=== PATIENT | male | born 1985 | race American Indian/Alaskan Native ===

== ENCOUNTER 2017-02-14 16:22 | Emergency (ER) | payer SELFPAY ==
[2017-02-14 17:12] VITALS: BP 144/84
[2017-02-14 17:46] LABS: Basophils % (Auto) 0.3 % (0.0-1.8); Eosinophils % (Auto) 0.1 % (0.0-4.3); Hematocrit 43.4 % (35.5-45.6); Hemoglobin 14.8 gm/dl (11.8-15.2); Mean Corpuscular HGB Conc 34 % (32-34); Mean Corpuscular Hemoglobin 33 pg (28-32); Mean Corpuscular Volume 98 fl (84-94); Platelet Count 239 K/mm3 (140-440); Red Blood Count 4.42 M/mm3 (3.65-5.03); Red Cell Distribution Width 12.5 % (13.2-15.2); White Blood Count 6.5 K/mm3 (4.5-11.0)
[2017-02-14 18:23] LABS: Anion Gap 17 mmol/L; BUN/Creatinine Ratio 9; Blood Urea Nitrogen 7 mg/dL (9-20); Carbon Dioxide 27 mmol/L (22-30); Chloride 97.6 mmol/L (98-107); Glucose 233 mg/dL (75-100); Potassium 4.7 mmol/L (3.6-5.0); Sodium 137 mmol/L (137-145)
[2017-02-14 18:26] LABS: Bilirubin,Urine NEG (Negative); Blood,Urine NEG (Negative); Ketones,Urine NEG (Negative); Leukocyte Esterase,Urine NEG (Negative); Nitrite,Urine NEG (Negative); Protein,Urine <15 mg/dL mg/dL (Negative); RBC,Urine < 1.0 /HPF (0.0-6.0); Urobilinogen,Urine < 2.0 mg/dL (<2.0); WBC,Urine < 1.0 /HPF (0.0-6.0)
== END 2017-02-14 18:25 | disposition left against medical advice (07) ==
LOC: ED 16:22
DX: E16.2 Hypoglycemia, unspecified (principal); Z53.21 Procedure and treatment not carried out due to patient leaving prior to being seen by health care provider
CPT/HCPCS: 36415; 80048; 81001; 82962; 85025

== ENCOUNTER 2021-02-18 01:42 | Emergency (ER) | payer SELFPAY ==
[2021-02-18 02:10] VITALS: BP 159/93
[2021-02-18] MEDS ORDERED: dexAMETHasone 20 MG/5 ML VIAL IM ONE (02:29)
[2021-02-18] MEDS ORDERED: diphenhydrAMINE 25 MG CAP PO ONE (02:29)
[2021-02-18] MEDS ORDERED: FAMOTIDINE 20 MG TAB PO ONE (02:29)
--- NOTE | 2021-02-18 03:38 | XRay Report ---
CHEST 2 VIEWS INDICATION: sob. COMPARISON: 12/18/2012. FINDINGS: Support devices: None. Heart: Within normal limits. Lungs/Pleura: No acute air space or interstitial disease. No significant pleural effusion. IMPRESSION: No acute findings. Signer Name: Abilio Sandhu MD Signed: 02/18/2021 3:33 AM Workstation Name: [id number]
--- NOTE | 2021-02-18 04:46 | Emergency Department Report ---
ED General Adult HPI - General Chief complaint: Upper Respiratory Infection Stated complaint: EXTREME COUGH Time Seen by Provider: 02/18/21 02:31 Source: patient Mode of arrival: Ambulatory Limitations: No Limitations - History of Present Illness Initial comments: Patient 35-year-old male who presents for cough states allergic reaction to dust in his hotel room. Patient denies history of asthma or bronchitis. There is no wheezing or stridor. Patient states itching burning skin. Is been no nausea no vomiting no shortness of breath no chest pain no fever chills. Symptoms are rated mild at this time. There are no relieving factors other than avoidance of stimuli. . - Related Data Home Medications Medication Instructions Recorded Confirmed Last Taken Insulin NPH/Regular [NovoLIN 70/30] 30 units SQ QAM 12/17/12 01/17/16 01/17/16 Insulin NPH/Regular [Novolin 70/30] 20 unit SQ QHS 12/18/12 01/17/16 01/16/16 Gabapentin [Neurontin] 800 mg PO DAILY 01/17/16 01/17/16 01/17/16 Vitamin B-12 1 tab PO DAILY 01/17/16 01/17/16 01/17/16 buPROPion [Wellbutrin] 300 mg PO DAILY 01/17/16 01/17/16 01/17/16 Previous Rx's Medication Instructions Recorded Last Taken Type Gentamicin 0.3% Ophth Soln 2 drops OS Q4H #1 bottle 07/21/15 Unknown Rx Ketorolac Tromethamine [Acular 1 drop OS QID PRN #5 ml 07/21/15 Unknown Rx 0.5% Opth Soln] Famotidine [Pepcid] 20 mg PO BID 5 Days #10 tablet 02/18/21 Unknown Rx dexAMETHasone [Decadron] 4 mg PO Q12H 5 Days #10 tablet 02/18/21 Unknown Rx diphenhydrAMINE [Benadryl CAP] 25 mg PO Q8HR PRN 5 Days #15 02/18/21 Unknown Rx capsule Allergies Allergy/AdvReac Type Severity Reaction Status Date / Time No Known Allergies Allergy Verified 07/21/15 16:14 ED Review of Systems ROS: Stated complaint: EXTREME COUGH Other details as noted in HPI Constitutional: denies: chills, fever Eyes: denies: eye pain, eye discharge, vision change ENT: congestion. denies: ear pain, throat pain Respiratory: cough. denies: shortness of breath, wheezing Cardiovascular: denies: chest pain, palpitations Endocrine: no symptoms reported Gastrointestinal: denies: abdominal pain, nausea, diarrhea Genitourinary: denies: urgency, dysuria Musculoskeletal: denies: back pain, joint swelling, arthralgia Skin: pruritus. denies: rash, lesions Neurological: denies: headache, weakness, paresthesias Psychiatric: denies: anxiety, depression Hematological/Lymphatic: denies: easy bleeding, easy bruising ED Past Medical Hx - Past Medical History Previous Medical History?: Yes Hx Hypertension: Yes Hx Diabetes: Yes Hx Psychiatric Treatment: Yes Hx Asthma: Yes - Surgical History Past Surgical History?: No - Social History Smoking Status: Unknown if ever smoked Substance Use Type: None - Medications Home Medications: Home Medications Medication Instructions Recorded Confirmed Last Taken Type Insulin NPH/Regular [NovoLIN 70/30] 30 units SQ QAM 12/17/12 01/17/16 01/17/16 History Insulin NPH/Regular [Novolin 70/30] 20 unit SQ QHS 12/18/12 01/17/16 01/16/16 History Gentamicin 0.3% Ophth Soln 2 drops OS Q4H #1 bottle 07/21/15 01/17/16 Unknown Rx Ketorolac Tromethamine [Acular 1 drop OS QID PRN #5 ml 07/21/15 01/17/16 Unknown Rx 0.5% Opth Soln] Gabapentin [Neurontin] 800 mg PO DAILY 01/17/16 01/17/16 01/17/16 History Vitamin B-12 1 tab PO DAILY 01/17/16 01/17/16 01/17/16 History buPROPion [Wellbutrin] 300 mg PO DAILY 01/17/16 01/17/16 01/17/16 History Famotidine [Pepcid] 20 mg PO BID 5 Days #10 tablet 02/18/21 Unknown Rx dexAMETHasone [Decadron] 4 mg PO Q12H 5 Days #10 tablet 02/18/21 Unknown Rx diphenhydrAMINE [Benadryl CAP] 25 mg PO Q8HR PRN 5 Days #15 02/18/21 Unknown Rx capsule ED Physical Exam - General Limitations: No Limitations General appearance: alert, in no apparent distress - Head Head exam: Present: atraumatic, normocephalic - Eye Eye exam: Present: EOMI Pupils: Present: normal accommodation - ENT ENT exam: Present: mucous membranes moist - Neck Neck exam: Present: normal inspection - Respiratory Respiratory exam: Present: normal lung sounds bilaterally. Absent: respiratory distress, wheezes, rales, rhonchi, stridor - Cardiovascular Cardiovascular Exam: Present: regular rate, normal rhythm, normal heart sounds. Absent: systolic murmur, diastolic murmur, rubs, gallop - GI/Abdominal GI/Abdominal exam: Present: soft, normal bowel sounds. Absent: distended, tenderness, guarding, rebound, rigid, bruit, hernia - Rectal Rectal exam: Present: deferred - Extremities Exam Extremities exam: Present: normal inspection, full ROM, normal capillary refill - Back Exam Back exam: Present: normal inspection, full ROM. Absent: CVA tenderness (R), CVA tenderness (L) - Neurological Exam Neurological exam: Present: alert, oriented X3, CN II-XII intact, normal gait, reflexes normal. Absent: motor sensory deficit - Expanded Neurological Exam Expanded Patient oriented to: Present: person, place, time Speech: Present: fluid speech Motor strength exam: RUE: 5, LUE: 5, RLE: 5, LLE: 5 Best Eye Response ([place]): (4) open spontaneously Best Motor Response ([place]): (6) obeys commands Best Verbal Response ([place]): (5) oriented [place] Total: 15 - Psychiatric Psychiatric exam: Present: normal affect, normal mood - Skin Skin exam: Present: warm, dry, intact, normal color. Absent: rash ED Course Vital Signs 02/18/21 02:09 Temperature 98.1 F Pulse Rate 109 H Respiratory 18 Rate Blood Pressure 159/93 [Right] O2 Sat by Pulse 97 Oximetry ED Medical Decision Making - Radiology Data Radiology results: report reviewed, image reviewed CHEST 2 VIEWS INDICATION: sob. COMPARISON: 12/18/2012. FINDINGS: Support devices: None. Heart: Within normal limits. Lungs/Pleura: No acute air space or interstitial disease. No significant pleural effusion. IMPRESSION: No acute findings. Signer Name: Abilio Sandhu MD Signed: 02/18/2021 3:33 AM Workstation Name: [id number] Transcribed By: JESSICA Dictated By: Abilio Sandhu MD Electronically Authenticated By: Abilio Sandhu MD Signed Date/Time: 02/18/21 0333 - Medical Decision Making Symptoms are resolved with medications given in ED. Heart rate now 87 BP 121/63, O2 sat is 99% on room air. Respirations are 18. Plan DC to home with prescriptions, patient will follow-up with primary care in 2 to 3 days. Patient will return to ED should symptoms worsen or return. Patient verbalizes agreement and understanding with discharge plan. Patient will be DC'd home in stable condition at this time., Critical care attestation.: If time is entered above; I have spent that time in minutes in the direct care of this critically ill patient, excluding procedure time. ED Disposition Clinical Impression: Allergic reaction Qualifiers: Encounter type: initial encounter Qualified Code(s): T78.40XA - Allergy, unspecified, initial encounter Disposition: HOME / SELF CARE / HOMELESS Is pt being admited?: No Does the pt Need Aspirin: No Condition: Stable Instructions: Allergies, Adult, [id number] Additional Instructions: Take medications as prescribed, follow-up with your doctor as needed. Return to emergency department should symptoms worsen. Prescriptions: diphenhydrAMINE [Benadryl CAP] 25 mg PO Q8HR PRN 5 Days #15 capsule PRN Reason: allergies dexAMETHasone [Decadron] 4 mg PO Q12H 5 Days #10 tablet Famotidine [Pepcid] 20 mg PO BID 5 Days #10 tablet Referrals: MORRIS KATE MD [Staff Physician] - 3-5 Days Forms: Work/School Release Form(ED) Time of Disposition: 04:50
== END 2021-02-18 05:13 | disposition home or self-care (01) ==
LOC: ED 01:42
DX: T78.40XA Allergy, unspecified, initial encounter (principal); I10 Essential (primary) hypertension; E11.9 Type 2 diabetes mellitus without complications; J45.909 Unspecified asthma, uncomplicated; Z79.4 Long term (current) use of insulin; X58.XXXA Exposure to other specified factors, initial encounter
CPT/HCPCS: 71046; 96372; 99283; J1100

== ENCOUNTER 2021-02-24 20:07 | Emergency (ER) | payer SELFPAY ==
[2021-02-24] MEDS ORDERED: LORazepam 2 MG/ML VIAL IM PRN (20:30)
[2021-02-24] MEDS ORDERED: HALOPERIDOL LACTATE 5 MG/1 ML INJ IM PRN (20:30)
[2021-02-24] MEDS ORDERED: diphenhydrAMINE 50 MG/ML VIAL IM PRN (20:30)
[2021-02-24 20:49] LABS: Red Cell Distribution Width 12.6 % (13.2-15.2)
[2021-02-24 21:04] LABS: Hematocrit 44.7 % (35.5-45.6); Lymphocytes # (Auto) 0.8 K/mm3 (1.2-5.4); Lymphocytes % (Auto) 7.5 % (13.4-35.0); Mean Corpuscular HGB Conc 34 % (32-34); Mean Corpuscular Volume 99 fl (84-94); Platelet Count 259 K/mm3 (140-440); Red Blood Count 4.52 M/mm3 (3.65-5.03)
--- NOTE | 2021-02-24 21:09 | Emergency Department Report ---
HPI - General Chief Complaint: Psych Time Seen by Provider: 02/24/21 20:29 - HPI HPI: Room 12 The patient is a 35-year-old male present with a chief complaint of homicidal ideation. The patient admits to becoming belligerent earlier today with neighbors around as he felt he was being accused of being a pedophile. The patient was brought in on a 1013 documenting that he stated he would kill himself. The patient reportedly threatened to kill himself with a knife. The patient denies this states he started yelling at his neighbors telling them "I hurt people/men not children." The patient states he used a hammer to bang on his mailbox and stated he wanted to hurt "somebody." The patient states "I like to beat men to ." Patient denies suicidal ideation. Patient has a history of bipolar disorder and states has been at least 2 months since he has had any of his psychiatric medication ED Past Medical Hx - Past Medical History Hx Hypertension: Yes Hx Diabetes: Yes Hx Psychiatric Treatment: Yes (BIPOLAR) Hx Asthma: Yes - Family History Family history: no significant - Social History Smoking Status: Current Every Day Smoker (1/4 pack/day) Substance Use Type: None (Denies illicit drug) - Medications Home Medications: Home Medications Medication Instructions Recorded Confirmed Last Taken Type Insulin NPH/Regular [NovoLIN 70/30] 30 units SQ QAM 12/17/12 01/17/16 01/17/16 History Insulin NPH/Regular [Novolin 70/30] 20 unit SQ QHS 12/18/12 01/17/16 01/16/16 History Gentamicin 0.3% Ophth Soln 2 drops OS Q4H #1 bottle 07/21/15 01/17/16 Unknown Rx Ketorolac Tromethamine [Acular 1 drop OS QID PRN #5 ml 07/21/15 01/17/16 Unknown Rx 0.5% Opth Soln] Gabapentin [Neurontin] 800 mg PO DAILY 01/17/16 01/17/16 01/17/16 History Vitamin B-12 1 tab PO DAILY 01/17/16 01/17/16 01/17/16 History buPROPion [Wellbutrin] 300 mg PO DAILY 01/17/16 01/17/16 01/17/16 History Famotidine [Pepcid] 20 mg PO BID 5 Days #10 tablet 02/18/21 Unknown Rx dexAMETHasone [Decadron] 4 mg PO Q12H 5 Days #10 tablet 02/18/21 Unknown Rx diphenhydrAMINE [Benadryl CAP] 25 mg PO Q8HR PRN 5 Days #15 02/18/21 Unknown Rx capsule ED Review of Systems ROS: Stated complaint: SUICIDAL Other details as noted in HPI Constitutional: no symptoms reported Eyes: denies: eye pain ENT: denies: throat pain Respiratory: no symptoms reported Cardiovascular: denies: chest pain Endocrine: no symptoms reported Gastrointestinal: denies: abdominal pain Genitourinary: denies: dysuria Musculoskeletal: denies: back pain Psychiatric: homicidal thoughts, suicidal thoughts Physical Exam - Physical Exam Vital Signs: Vital Signs 02/24/21 20:15 Temperature 98.3 F Pulse Rate 104 H Respiratory 19 Rate Blood Pressure 131/77 [Left] O2 Sat by Pulse 99 Oximetry Physical Exam: GENERAL: The patient is well-developed well-nourished male lying in chair not appearing to be in acute HEENT: Normocephalic. Atraumatic. Extraocular motions are intact. Patient has moist mucous membranes. NECK: Supple. Trachea midline CHEST/LUNGS: Clear to auscultation. There is no respiratory distress noted. HEART/CARDIOVASCULAR: Regular. There is no tachycardia. There is no gallop rub or murmur. ABDOMEN: Abdomen is soft, nontender. Patient has normal bowel sounds. There is no abdominal distention. SKIN: There is no rash. There is no edema. There is no diaphoresis. NEURO: The patient is awake, alert, and oriented. The patient is cooperative. The patient has no focal neurologic deficits. The patient has normal speech. GCS 15 MUSCULOSKELETAL: There is no evidence of acute injury. ED Course Vital Signs 02/24/21 20:15 Temperature 98.3 F Pulse Rate 104 H Respiratory 19 Rate Blood Pressure 131/77 [Left] O2 Sat by Pulse 99 Oximetry ED Medical Decision Making - Lab Data Result diagrams: 02/24/21 20:36 02/24/21 20:36 Laboratory Tests 02/24/21 02/24/21 02/24/21 20:36 20:36 20:36 WBC 10.6 RBC 4.52 Hgb 15.0 Hct 44.7 MCV 99 H MCH 33 H MCHC 34 RDW 12.6 L Plt Count 259 Lymph % (Auto) 7.5 L Lymph # (Auto) 0.8 L Add Manual Diff Complete Total Counted 100 Seg Neutrophils % Supervisor Wound Seg Neuts % (Manual) 89.0 H Lymphocytes % (Manual) 8.0 L Monocytes % (Manual) 3.0 Nucleated RBC % Not Reportable Seg Neutrophils # 9.5 H Seg Neutrophils # Man 9.4 H Band Neutrophils # 0.0 Lymphocytes # (Manual) 0.8 L Abs React Lymphs (Man) 0.0 Monocytes # (Manual) 0.3 Eosinophils # (Manual) 0.0 Basophils # (Manual) 0.0 Metamyelocytes # 0.0 Myelocytes # 0.0 Promyelocytes # 0.0 Blast Cells # 0.0 WBC Morphology Not Reportable Hypersegmented Neuts Not Reportable Hyposegmented Neuts Not Reportable Hypogranular Neuts Not Reportable Smudge Cells Not Reportable Toxic Granulation Not Reportable Toxic Vacuolation Not Reportable Dohle Bodies Not Reportable Pelger-Huet Anomaly Not Reportable Romelia Rods Not Reportable Platelet Estimate Not Reportable Clumped Platelets Not Reportable Plt Clumps, EDTA Not Reportable Large Platelets Not Reportable Giant Platelets Not Reportable Platelet Satelliting Not Reportable Plt Morphology Comment Not Reportable RBC Morphology Normal Dimorphic RBCs Not Reportable Polychromasia Not Reportable Hypochromasia Not Reportable Poikilocytosis Not Reportable Anisocytosis Not Reportable Microcytosis Not Reportable Macrocytosis Not Reportable Spherocytes Not Reportable Pappenheimer Bodies Not Reportable Sickle Cells Not Reportable Target Cells Not Reportable Tear Drop Cells Not Reportable Ovalocytes Not Reportable Helmet Cells Not Reportable [place] Bodies Not Reportable [place] Not Reportable Nitin Cells Not Reportable Bite Cells Not Reportable Crenated Cell Not Reportable Elliptocytes Not Reportable Acanthocytes ([place]) Not Reportable Rouleaux Not Reportable Hemoglobin C Crystals Not Reportable Schistocytes Not Reportable Malaria parasites Not Reportable [place] Bodies Not Reportable Hem Pathologist Commnt No Sodium 139 Potassium 4.6 Chloride 103.0 Carbon Dioxide 21 L Anion Gap 20 BUN 13 Creatinine 1.0 Estimated GFR > 60 BUN/Creatinine Ratio 13 Glucose 95 Calcium 9.3 Total Bilirubin 0.50 AST 28 ALT 22 Alkaline Phosphatase 110 Total Protein 7.4 Albumin 4.3 Albumin/Globulin Ratio 1.4 Urine Color Urine Turbidity Urine pH Ur Specific [place] Urine Protein Urine Glucose (UA) Urine Ketones Urine Blood Urine Nitrite Urine Bilirubin Urine Urobilinogen Ur Leukocyte Esterase Urine WBC (Auto) Urine RBC (Auto) U Epithel Cells (Auto) Urine Bacteria (Auto) Hyaline Casts Urine Mucus Salicylates < 0.3 L Urine Opiates Screen Urine Methadone Screen Acetaminophen Ur Barbiturates Screen Ur Phencyclidine Scrn Ur Amphetamines Screen U Benzodiazepines Scrn Urine Cocaine Screen U Marijuana (THC) Screen Drugs of Abuse Note Plasma/Serum Alcohol 02/24/21 02/24/21 02/24/21 20:36 20:36 21:13 WBC RBC Hgb Hct MCV MCH MCHC RDW Plt Count Lymph % (Auto) Lymph # (Auto) Add Manual Diff Total Counted Seg Neutrophils % Seg Neuts % (Manual) Lymphocytes % (Manual) Monocytes % (Manual) Nucleated RBC % Seg Neutrophils # Seg Neutrophils # [place] Neutrophils # Lymphocytes # (Manual) Abs React Lymphs (Man) Monocytes # (Manual) Eosinophils # (Manual) Basophils # (Manual) Metamyelocytes # Myelocytes # Promyelocytes # Blast Cells # WBC Morphology Hypersegmented Neuts Hyposegmented Neuts Hypogranular Neuts Smudge Cells Toxic Granulation Toxic Vacuolation Dohle Bodies Pelger-Huet Anomaly Romelia Rods Platelet Estimate Clumped Platelets Plt Clumps, EDTA Large Platelets Giant Platelets Platelet Satelliting Plt Morphology Comment RBC Morphology Dimorphic RBCs Polychromasia Hypochromasia Poikilocytosis Anisocytosis Microcytosis Macrocytosis Spherocytes Pappenheimer Bodies Sickle Cells Target Cells Tear Drop Cells Ovalocytes Helmet Cells [place] Bodies [place] Nitin Cells Bite Cells Crenated Cell Elliptocytes Acanthocytes ([place]) Rouleaux Hemoglobin C Crystals Schistocytes Malaria parasites [place] Bodies Hem Pathologist Commnt Sodium Potassium Chloride Carbon Dioxide Anion Gap BUN Creatinine Estimated GFR BUN/Creatinine Ratio Glucose Calcium Total Bilirubin AST ALT Alkaline Phosphatase Total Protein Albumin Albumin/Globulin Ratio Urine Color Yellow Urine Turbidity Clear Urine pH 5.0 Ur Specific [place] 1.021 Urine Protein 30 mg/dl Urine Glucose (UA) >=500 Urine Ketones Tr Urine Blood Neg Urine Nitrite Neg Urine Bilirubin Neg Urine Urobilinogen < 2.0 Ur Leukocyte Esterase Neg Urine WBC (Auto) 3.0 Urine RBC (Auto) 1.0 U Epithel Cells (Auto) 1.0 Urine Bacteria (Auto) 1+ Hyaline Casts 7 Urine Mucus Few Salicylates Urine Opiates Screen Urine Methadone Screen Acetaminophen 5.0 L Ur Barbiturates Screen Ur Phencyclidine Scrn Ur Amphetamines Screen U Benzodiazepines Scrn Urine Cocaine Screen U Marijuana (THC) Screen Drugs of Abuse Note Plasma/Serum Alcohol < 0.01 02/24/21 21:13 WBC RBC Hgb Hct MCV MCH MCHC RDW Plt Count Lymph % (Auto) Lymph # (Auto) Add Manual Diff Total Counted Seg Neutrophils % Seg Neuts % (Manual) Lymphocytes % (Manual) Monocytes % (Manual) Nucleated RBC % Seg Neutrophils # Seg Neutrophils # [place] Neutrophils # Lymphocytes # (Manual) Abs React Lymphs (Man) Monocytes # (Manual) Eosinophils # (Manual) Basophils # (Manual) Metamyelocytes # Myelocytes # Promyelocytes # Blast Cells # WBC Morphology Hypersegmented Neuts Hyposegmented Neuts Hypogranular Neuts Smudge Cells Toxic Granulation Toxic Vacuolation Dohle Bodies Pelger-Huet Anomaly Romelia Rods Platelet Estimate Clumped Platelets Plt Clumps, EDTA Large Platelets Giant Platelets Platelet Satelliting Plt Morphology Comment RBC Morphology Dimorphic RBCs Polychromasia Hypochromasia Poikilocytosis Anisocytosis Microcytosis Macrocytosis Spherocytes Pappenheimer Bodies Sickle Cells Target Cells Tear Drop Cells Ovalocytes Helmet Cells [place] Bodies [place] Cells Bite Cells Crenated Cell Elliptocytes Acanthocytes ([place]) Rouleaux Hemoglobin C Crystals Schistocytes Malaria parasites [place] Bodies Hem Pathologist Commnt Sodium Potassium Chloride Carbon Dioxide Anion Gap BUN Creatinine Estimated GFR BUN/Creatinine Ratio Glucose Calcium Total Bilirubin AST ALT Alkaline Phosphatase Total Protein Albumin Albumin/Globulin Ratio Urine Color Urine Turbidity Urine pH Ur Specific [place] Urine Protein Urine Glucose (UA) Urine Ketones Urine Blood Urine Nitrite Urine Bilirubin Urine Urobilinogen Ur Leukocyte Esterase Urine WBC (Auto) Urine RBC (Auto) U Epithel Cells (Auto) Urine Bacteria (Auto) Hyaline Casts Urine Mucus Salicylates Urine Opiates Screen Positive Urine Methadone Screen Negative Acetaminophen Ur Barbiturates Screen Negative Ur Phencyclidine Scrn Negative Ur Amphetamines Screen Negative U Benzodiazepines Scrn Negative Urine Cocaine Screen Negative U Marijuana (THC) Screen Positive Drugs of Abuse Note Disclamer Plasma/Serum Alcohol - Differential Diagnosis Homicidal ideation, bipolar disorder Critical care attestation.: If time is entered above; I have spent that time in minutes in the direct care of this critically ill patient, excluding procedure time. ED Disposition Clinical Impression: Homicidal ideation, Bipolar disorder Disposition: [address] [place] [address] Is pt being admited?: No Does the pt Need Aspirin: No Condition: Stable
[2021-02-24 21:10] LABS: Alanine Aminotransferase 22 units/L (7-56); Albumin 4.3 g/dL (3.9-5); BUN/Creatinine Ratio 13; Blood Urea Nitrogen 13 mg/dL (9-20); Calcium 9.3 mg/dL (8.4-10.2); Hemolysis Index 135
[2021-02-24 21:37] LABS: Bacteria,Urine 1+ /HPF (Negative); Bilirubin,Urine NEG (Negative); Blood,Urine NEG (Negative); Color,Urine Yellow (Yellow); Hyaline Casts,Urine 7 /LPF; Mucus,Urine FEW /HPF; Urobilinogen,Urine < 2.0 mg/dL (<2.0)
[2021-02-24 21:42] VITALS: BP 137/74
[2021-02-24 21:44] LABS: RBC Morphology Normal; Total Cells Counted 100
[2021-02-24 21:44] LABS: Amphetamine Screen,Urine Negative; Benzodiazepines Screen,Urine Negative; Cocaine Screen,Urine Negative; Methadone Screen,Urine Negative
[2021-02-24 21:58] LABS: Cannabinoid Screen,Urine Positive; Opiate Screen,Urine Positive
--- NOTE | 2021-02-25 11:30 | Consultation ---
History of Present Illness - Reason for Consult Consult date: 02/25/21 Reason for consult: Homicidal - History of Present Psychiatric Illness The patient was seen today. He is sleeping. He awakens to come and speak with me. He is calm and cooperative. The patient says he was brought to the hospital because he was "yelling obscenities to the neighbors." He says "they were accusing me of things I didn't do." The patient says he has a history of Bipolar and has been off his meds for about three months. He says he takes Gabapentin 800mg twice daily, and wellbutrin 300 daily. He denies SI/HI. He says "not now, but I did make some threats." He then says "but no, I'm not none of that now." The patient denies hallucinations of any kind. He denies any illicit drug use or alcohol. He says "my biggest problem is I don't sleep good." He says he lives with his mother and her boyfriend. 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 calm, cooperative Cooperation: cooperative Psychomotor Behavior: Psychomotor normal Mood: better Affect and affective range: congruent with stated mood Thought Process: goal directed Thought Content: None Speech: Normal volume, Regular rate and rhythm, Suicidal Ideation: Denies Homicidal Ideation: Denies Hallucinations: Denies Delusions: none elicited Impulse Control: Limited Insight and Judgment: Limited Memory: limited Attention: Attentive Orientation: alert and oriented Assessment and Plan (1) Bipolar Disorder Treatment Plan Gabapentin 300mg po BID Wellbutrin 100mg po BID Trazodone 50mg po qhs Give first does prior to leaving Medical: per primary Sitter: per primary Disposition: Do not recommend acute psychiatric inpatient treatment. The patient understands that if SI/HI or any fear of endangerment arise he is to seek immediate assistance The jet operator to give the patient outpatient resources Will sign off. Thanks. Case staffed with Dr. Wilkins Medications and Allergies Allergies Allergy/AdvReac Type Severity Reaction Status Date / Time No Known Allergies Allergy Verified 02/24/21 20:15 Home Medications Medication Instructions Recorded Confirmed Last Taken Type Insulin NPH/Regular [NovoLIN 70/30] 30 units SQ QAM 12/17/12 01/17/16 01/17/16 History Insulin NPH/Regular [Novolin 70/30] 20 unit SQ QHS 12/18/12 01/17/16 01/16/16 History Gentamicin 0.3% Ophth Soln 2 drops OS Q4H #1 bottle 07/21/15 01/17/16 Unknown Rx Ketorolac Tromethamine [Acular 1 drop OS QID PRN #5 ml 07/21/15 01/17/16 Unknown Rx 0.5% Opth Soln] Gabapentin [Neurontin] 800 mg PO DAILY 01/17/16 01/17/16 01/17/16 History Vitamin B-12 1 tab PO DAILY 01/17/16 01/17/16 01/17/16 History buPROPion [Wellbutrin] 300 mg PO DAILY 01/17/16 01/17/16 01/17/16 History Famotidine [Pepcid] 20 mg PO BID 5 Days #10 tablet 02/18/21 Unknown Rx dexAMETHasone [Decadron] 4 mg PO Q12H 5 Days #10 tablet 02/18/21 Unknown Rx diphenhydrAMINE [Benadryl CAP] 25 mg PO Q8HR PRN 5 Days #15 02/18/21 Unknown Rx capsule Gabapentin 300 mg PO BID #60 cap 02/25/21 Unknown Rx buPROPion [Wellbutrin] 100 mg PO BID #60 tab 02/25/21 Unknown Rx traZODone [Desyrel] 50 mg PO QHS #30 tab 02/25/21 Unknown Rx Active Meds: Active Medications Diphenhydramine HCl (Diphenhydramine 50 Mg/Ml Vial) 50 mg IM Q6H PRN PRN Reason: Agitation Last Admin: 02/24/21 22:07 Dose: 50 mg Documented by: Haloperidol Lactate (Haloperidol Lactate 5 Mg/1 Ml Inj) 10 mg IM Q8H PRN PRN Reason: Agitation Last Admin: 02/25/21 09:11 Dose: 10 mg Documented by: Lorazepam (Lorazepam 2 Mg/Ml Vial) 2 mg IM Q8H PRN PRN Reason: Agitation Last Admin: 02/24/21 22:06 Dose: 2 mg Documented by: Mental Status Exam - Vital signs Last Vital Signs Temp 98.7 F 02/24/21 21:41 Pulse 114 H 02/24/21 21:41 Resp 18 02/24/21 21:41 BP 137/74 02/24/21 21:41 Pulse Ox 97 02/24/21 21:41 Results Result Diagrams: 02/24/21 20:36 02/24/21 20:36 Abnormal lab results 02/24/21 02/24/21 02/24/21 Range/Units 20:36 20:36 20:36 MCV 99 H (84-94) fl MCH 33 H (28-32) pg RDW 12.6 L (13.2-15.2) % Lymph % (Auto) 7.5 L (13.4-35.0) % Lymph # (Auto) 0.8 L (1.2-5.4) K/mm3 Seg Neuts % (Manual) 89.0 H (40.0-70.0) % Lymphocytes % (Manual) 8.0 L (13.4-35.0) % Seg Neutrophils # 9.5 H (1.8-7.7) K/mm3 Seg Neutrophils # Man 9.4 H (1.8-7.7) K/mm3 Lymphocytes # (Manual) 0.8 L (1.2-5.4) K/mm3 Carbon Dioxide 21 L (22-30) mmol/L POC Glucose (70-105) mg/dL Salicylates < 0.3 L (2.8-20.0) mg/dL Acetaminophen (10.0-30.0) ug/mL 02/24/21 02/25/21 Range/Units 20:36 07:41 MCV (84-94) fl MCH (28-32) pg RDW (13.2-15.2) % Lymph % (Auto) (13.4-35.0) % Lymph # (Auto) (1.2-5.4) K/mm3 Seg Neuts % (Manual) (40.0-70.0) % Lymphocytes % (Manual) (13.4-35.0) % Seg Neutrophils # (1.8-7.7) K/mm3 Seg Neutrophils # Man (1.8-7.7) K/mm3 Lymphocytes # (Manual) (1.2-5.4) K/mm3 Carbon Dioxide (22-30) mmol/L POC Glucose 133 H (70-105) mg/dL Salicylates (2.8-20.0) mg/dL Acetaminophen 5.0 L (10.0-30.0) ug/mL All other labs normal.
[2021-02-25] MEDS ORDERED: GABAPENTIN 300 MG CAP PO ONE (12:00)
[2021-02-25] MEDS ORDERED: buPROPion 100 MG TAB PO ONE (12:00)
== END 2021-02-25 12:26 ==
LOC: ED 20:07
DX: R45.850 Homicidal ideations (principal); F31.9 Bipolar disorder, unspecified; Z20.822 Contact with and (suspected) exposure to COVID-19; I10 Essential (primary) hypertension; E11.9 Type 2 diabetes mellitus without complications; J45.909 Unspecified asthma, uncomplicated; F17.200 Nicotine dependence, unspecified, uncomplicated
CPT/HCPCS: 36415; 80053; 80307; 81001; 82962; 85007; 85025; 96372; 99284; J1200; J1630; J2060; U0003; 80320; G0480

== ENCOUNTER 2021-02-26 15:46 | Emergency (ER) | payer SELFPAY ==
[2021-02-26] MEDS ORDERED: diphenhydrAMINE 50 MG/ML VIAL ONE (16:45)
[2021-02-26] MEDS ORDERED: diphenhydrAMINE 50 MG/ML VIAL IV ONE (16:49)
--- NOTE | 2021-02-26 17:34 | Emergency Department Report ---
ED General Adult HPI - General Chief complaint: Allergic Reaction Stated complaint: PSYCH MEDS REACTION Time Seen by Provider: 02/26/21 16:41 Source: patient Mode of arrival: Ambulatory Limitations: No Limitations - History of Present Illness Initial comments: Patient is 35 years old male with history of bipolar disorder. Patient was discharged from the hospital yesterday. Patient received trazodone prior to discharge yesterday according to the note. Patient presented to the ER complaining of involuntary movement in his upper extremities and his jaw. Patient denied any other symptoms. Patient denied any suicidal or homicidal ideation. No visual or auditory hallucination. - Related Data Home Medications Medication Instructions Recorded Confirmed Last Taken Insulin NPH/Regular [NovoLIN 70/30] 30 units SQ QAM 12/17/12 01/17/16 01/17/16 Insulin NPH/Regular [Novolin 70/30] 20 unit SQ QHS 12/18/12 01/17/16 01/16/16 Gabapentin [Neurontin] 800 mg PO DAILY 01/17/16 01/17/16 01/17/16 Vitamin B-12 1 tab PO DAILY 01/17/16 01/17/16 01/17/16 buPROPion [Wellbutrin] 300 mg PO DAILY 01/17/16 01/17/16 01/17/16 Previous Rx's Medication Instructions Recorded Last Taken Type Gentamicin 0.3% Ophth Soln 2 drops OS Q4H #1 bottle 07/21/15 Unknown Rx Ketorolac Tromethamine [Acular 1 drop OS QID PRN #5 ml 07/21/15 Unknown Rx 0.5% Opth Soln] Famotidine [Pepcid] 20 mg PO BID 5 Days #10 tablet 02/18/21 Unknown Rx dexAMETHasone [Decadron] 4 mg PO Q12H 5 Days #10 tablet 02/18/21 Unknown Rx diphenhydrAMINE [Benadryl CAP] 25 mg PO Q8HR PRN 5 Days #15 02/18/21 Unknown Rx capsule Gabapentin 300 mg PO BID #60 cap 02/25/21 Unknown Rx buPROPion [Wellbutrin] 100 mg PO BID #60 tab 02/25/21 Unknown Rx traZODone [Desyrel] 50 mg PO QHS #30 tab 02/25/21 Unknown Rx Allergies Allergy/AdvReac Type Severity Reaction Status Date / Time No Known Allergies Allergy Verified 02/24/21 20:15 ED Review of Systems ROS: Stated complaint: PSYCH MEDS REACTION Other details as noted in HPI Comment: All other systems reviewed and negative Constitutional: denies: chills, fever Respiratory: denies: cough, shortness of breath, SOB with exertion Cardiovascular: denies: chest pain, palpitations Neurological: denies: headache, weakness Psychiatric: denies: depression, auditory hallucinations, visual hallucinations, homicidal thoughts, suicidal thoughts ED Past Medical Hx - Past Medical History Hx Hypertension: Yes Hx Diabetes: Yes Hx Psychiatric Treatment: Yes (BIPOLAR) Hx Asthma: Yes - Social History Smoking Status: Current Every Day Smoker (1/4 pack/day) Substance Use Type: None (Denies illicit drug) - Medications Home Medications: Home Medications Medication Instructions Recorded Confirmed Last Taken Type Insulin NPH/Regular [NovoLIN 70/30] 30 units SQ QAM 12/17/12 01/17/16 01/17/16 History Insulin NPH/Regular [Novolin 70/30] 20 unit SQ QHS 12/18/12 01/17/16 01/16/16 History Gentamicin 0.3% Ophth Soln 2 drops OS Q4H #1 bottle 07/21/15 01/17/16 Unknown Rx Ketorolac Tromethamine [Acular 1 drop OS QID PRN #5 ml 07/21/15 01/17/16 Unknown Rx 0.5% Opth Soln] Gabapentin [Neurontin] 800 mg PO DAILY 01/17/16 01/17/16 01/17/16 History Vitamin B-12 1 tab PO DAILY 01/17/16 01/17/16 01/17/16 History buPROPion [Wellbutrin] 300 mg PO DAILY 01/17/16 01/17/16 01/17/16 History Famotidine [Pepcid] 20 mg PO BID 5 Days #10 tablet 02/18/21 Unknown Rx dexAMETHasone [Decadron] 4 mg PO Q12H 5 Days #10 tablet 02/18/21 Unknown Rx diphenhydrAMINE [Benadryl CAP] 25 mg PO Q8HR PRN 5 Days #15 02/18/21 Unknown Rx capsule Gabapentin 300 mg PO BID #60 cap 02/25/21 Unknown Rx buPROPion [Wellbutrin] 100 mg PO BID #60 tab 02/25/21 Unknown Rx traZODone [Desyrel] 50 mg PO QHS #30 tab 02/25/21 Unknown Rx ED Physical Exam - General Limitations: No Limitations General appearance: alert, in no apparent distress, other (Tardive dyskinesia) - Head Head exam: Present: atraumatic, normocephalic, normal inspection - Eye Eye exam: Present: normal appearance - ENT ENT exam: Present: normal exam, normal orophraynx, mucous membranes moist - Neck Neck exam: Present: normal inspection. Absent: tenderness, meningismus - Respiratory Respiratory exam: Present: normal lung sounds bilaterally - Cardiovascular Cardiovascular Exam: Present: regular rate, normal rhythm, normal heart sounds - GI/Abdominal GI/Abdominal exam: Present: soft, normal bowel sounds. Absent: distended, tenderness, guarding, rebound, rigid, organomegaly, mass, bruit, pulsatile mass, hernia - Extremities Exam Extremities exam: Present: normal inspection, full ROM, normal capillary refill. Absent: tenderness - Back Exam Back exam: Present: normal inspection, full ROM. Absent: CVA tenderness (R), CVA tenderness (L) - Neurological Exam Neurological exam: Present: alert, oriented X3, CN II-XII intact - Psychiatric Psychiatric exam: Present: normal mood. Absent: agitated, anxious, flat affect, manic, homicidal ideation, suicidal ideation - Skin Skin exam: Present: warm, intact, normal color ED Medical Decision Making - Medical Decision Making Patient is 35 years old male with history of bipolar disorder. Patient was discharged from the hospital yesterday. Patient received trazodone prior to discharge yesterday according to the note. Patient presented to the ER complaining of involuntary movement in his upper extremities and his jaw. Patient denied any other symptoms. Patient denied any suicidal or homicidal ideation. No visual or auditory hallucination. Denies distress. Patient received Benadryl 50 mg IM with significant improvement in his symptoms. Patient given prescription for Benadryl and advised to follow-up with his primary doctor in the next 2 to 3 days and to return to the ER if he develop any new symptoms. Critical care attestation.: If time is entered above; I have spent that time in minutes in the direct care of this critically ill patient, excluding procedure time. ED Disposition Clinical Impression: Tardive dyskinesia Disposition: 01 HOME / SELF CARE / HOMELESS Is pt being admited?: No Condition: Stable Instructions: Tardive Dyskinesia Referrals: PRIMARY CARE, [Primary Care Provider] - 3-5 Days
== END 2021-02-26 19:03 | disposition home or self-care (01) ==
LOC: ED 15:46
DX: G24.01 Drug induced subacute dyskinesia (principal); F31.9 Bipolar disorder, unspecified; I10 Essential (primary) hypertension; E11.9 Type 2 diabetes mellitus without complications; J45.909 Unspecified asthma, uncomplicated; F17.200 Nicotine dependence, unspecified, uncomplicated; Z79.4 Long term (current) use of insulin; Z79.899 Other long term (current) drug therapy
CPT/HCPCS: 96374; 99282; J1200

== ENCOUNTER 2021-03-21 14:08 | Emergency (ER) | payer SELFPAY | END 2021-03-21 16:03 | disposition left against medical advice (07) | LOC: ED 14:08 | DX: M79.643 Pain in unspecified hand (principal); Z53.21 Procedure and treatment not carried out due to patient leaving prior to being seen by health care provider ==

== ENCOUNTER 2021-04-07 18:42 | Emergency (ER) | payer SELFPAY ==
--- NOTE | 2021-04-07 21:26 | XRay Report ---
XR hand 3+V LT INDICATION: injury. COMPARISON: None available. FINDINGS: There is a fracture of the distal shaft of the fifth metacarpal with dorsal apex angulation of the fr acture. Signer Name: Rizwan العلي MD Signed: 04/07/2021 9:21 PM Workstation Name: [id number]
--- NOTE | 2021-04-07 21:26 | XRay Report ---
XR forearm LT INDICATION / CLINICAL INFORMATION: injury. COMPARISON: None available. FINDINGS: BONES/JOINT(S): No acute fracture or subluxation. No significant degenerative changes. SOFT TISSUES: No significant abnormality. ADDITIONAL FINDINGS: None. Signer Name: Rizwan العلي MD Signed: 04/07/2021 9:22 PM Workstation Name: [id number]
[2021-04-07] MEDS ORDERED: IBUPROFEN 600 MG TAB PO ONE (21:34)
[2021-04-07] MEDS ORDERED: HYDROcodone/ACETAMINOPHEN 5-325 MG TAB PO ONE (21:34)
[2021-04-07] MEDS ORDERED: ONDANSETRON 4 MG ODT TAB PO ONE (21:35)
--- NOTE | 2021-04-07 21:47 | Emergency Department Report ---
<ROSELINE ZAMORANO - Last Filed: 04/07/21 21:43> ED Upper Extremity Inj HPI - General Chief Complaint: Extremity Injury, Upper Stated Complaint: DEHYDRATION Source: patient Mode of arrival: Ambulatory Limitations: No Limitations - History of Present Illness Initial Comments: Patient is a 35-year-old -Maltese male with a history of lgc-lcytpau-aajybeomw diabetes, hypertension, asthma and bipolar disorder presented to the ED with complaint of acute onset persistent severe left hand pain and swelling after he punched the wall in anger 24 hours ago. Patient states that he has not been able to perform any active range of motion with the left hand because of worsening pain. Patient states that he has previously injured the right hand as well after punching a wall in anger. Patient stated that he punched the wall because he did not want to punch any individual after he got annoyed. Patient denies numbness and tingling or weakness of left hand, dizziness, syncope, loss of consciousness, fall, chest pain or shortness of breath, neck pain or head and neck injuries, suicidal or homicidal ideations. MD Complaint: Injury to:: left (hand), forearm (left) -: Sudden, hour(s) (24) Other Extremity Injury: Fingers: Left (pain), Hand: Left (pain) Other Injuries: none Handedness: left Place: home Severity scale (0 -10): 8 Improves With: none Worsens With: none, movement of extremity Context: direct blow (punched wall in anger), injury Associated Symptoms: denies other symptoms. denies: numbness, neck pain, suspects foreign body, nausea/vomiting, heard/felt popping sensat - Related Data Home Medications Medication Instructions Recorded Confirmed Last Taken Insulin NPH/Regular [NovoLIN 70/30] 30 units SQ QAM 12/17/12 01/17/16 01/17/16 Insulin NPH/Regular [Novolin 70/30] 20 unit SQ QHS 12/18/12 01/17/16 01/16/16 Gabapentin [Neurontin] 800 mg PO DAILY 01/17/16 01/17/16 01/17/16 Vitamin B-12 1 tab PO DAILY 01/17/16 01/17/16 01/17/16 buPROPion [Wellbutrin] 300 mg PO DAILY 01/17/16 01/17/16 01/17/16 Previous Rx's Medication Instructions Recorded Last Taken Type Gentamicin 0.3% Ophth Soln 2 drops OS Q4H #1 bottle 07/21/15 Unknown Rx Ketorolac Tromethamine [Acular 1 drop OS QID PRN #5 ml 07/21/15 Unknown Rx 0.5% Opth Soln] Famotidine [Pepcid] 20 mg PO BID 5 Days #10 tablet 02/18/21 Unknown Rx dexAMETHasone [Decadron] 4 mg PO Q12H 5 Days #10 tablet 02/18/21 Unknown Rx diphenhydrAMINE [Benadryl CAP] 25 mg PO Q8HR PRN 5 Days #15 02/18/21 Unknown Rx capsule Gabapentin 300 mg PO BID #60 cap 02/25/21 Unknown Rx buPROPion [Wellbutrin] 100 mg PO BID #60 tab 02/25/21 Unknown Rx traZODone [Desyrel] 50 mg PO QHS #30 tab 02/25/21 Unknown Rx diphenhydrAMINE [Benadryl CAP] 25 mg PO Q8HR PRN #20 capsule 02/26/21 Unknown Rx HYDROcodone/APAP 5-325 [[place] 1 each PO Q6HR PRN #12 tablet 04/07/21 Unknown Rx 5/325] Ibuprofen [Motrin] 800 mg PO Q8HR PRN #30 tablet 04/07/21 Unknown Rx HYDROcodone/APAP 5-325 [[place] 1 each PO Q6HR PRN #12 tablet 04/09/21 Unknown Rx 5/325] Ibuprofen [Motrin 600 MG tab] 600 mg PO Q8H PRN #20 tablet 04/09/21 Unknown Rx Allergies Allergy/AdvReac Type Severity Reaction Status Date / Time No Known Allergies Allergy Verified 02/24/21 20:15 ED Review of Systems Constitutional: denies: chills, fever Eyes: denies: eye pain, eye discharge, vision change ENT: denies: ear pain, throat pain Respiratory: denies: cough, shortness of breath, wheezing Cardiovascular: denies: chest pain, palpitations Endocrine: no symptoms reported Gastrointestinal: denies: abdominal pain, nausea, diarrhea Genitourinary: denies: urgency, dysuria Musculoskeletal: joint swelling, arthralgia (Left hand pain and swelling). denies: back pain Skin: denies: rash, lesions Neurological: denies: headache, weakness, paresthesias Psychiatric: anxiety. denies: depression, auditory hallucinations, suicidal thoughts Hematological/Lymphatic: denies: easy bleeding, easy bruising ED Past Medical Hx - Past Medical History Previous Medical History?: No (Left hand pain and swelling) Hx Hypertension: Yes Hx Diabetes: Yes Hx Psychiatric Treatment: Yes (BIPOLAR) Hx Asthma: Yes - Surgical History Past Surgical History?: No - Social History Smoking Status: Current Every Day Smoker (1/4 pack/day) Substance Use Type: None (Denies illicit drug) - Medications Home Medications: Home Medications Medication Instructions Recorded Confirmed Last Taken Type Insulin NPH/Regular [NovoLIN 70/30] 30 units SQ QAM 12/17/12 01/17/16 01/17/16 History Insulin NPH/Regular [Novolin 70/30] 20 unit SQ QHS 12/18/12 01/17/16 01/16/16 History Gentamicin 0.3% Ophth Soln 2 drops OS Q4H #1 bottle 07/21/15 01/17/16 Unknown Rx Ketorolac Tromethamine [Acular 1 drop OS QID PRN #5 ml 07/21/15 01/17/16 Unknown Rx 0.5% Opth Soln] Gabapentin [Neurontin] 800 mg PO DAILY 01/17/16 01/17/16 01/17/16 History Vitamin B-12 1 tab PO DAILY 01/17/16 01/17/16 01/17/16 History buPROPion [Wellbutrin] 300 mg PO DAILY 01/17/16 01/17/16 01/17/16 History Famotidine [Pepcid] 20 mg PO BID 5 Days #10 tablet 02/18/21 Unknown Rx dexAMETHasone [Decadron] 4 mg PO Q12H 5 Days #10 tablet 02/18/21 Unknown Rx diphenhydrAMINE [Benadryl CAP] 25 mg PO Q8HR PRN 5 Days #15 02/18/21 Unknown Rx capsule Gabapentin 300 mg PO BID #60 cap 02/25/21 Unknown Rx buPROPion [Wellbutrin] 100 mg PO BID #60 tab 02/25/21 Unknown Rx traZODone [Desyrel] 50 mg PO QHS #30 tab 02/25/21 Unknown Rx diphenhydrAMINE [Benadryl CAP] 25 mg PO Q8HR PRN #20 capsule 02/26/21 Unknown Rx HYDROcodone/APAP 5-325 [[place] 1 each PO Q6HR PRN #12 tablet 04/07/21 Unknown Rx 5/325] Ibuprofen [Motrin] 800 mg PO Q8HR PRN #30 tablet 04/07/21 Unknown Rx HYDROcodone/APAP 5-325 [[place] 1 each PO Q6HR PRN #12 tablet 04/09/21 Unknown Rx 5/325] Ibuprofen [Motrin 600 MG tab] 600 mg PO Q8H PRN #20 tablet 04/09/21 Unknown Rx ED Physical Exam - General Limitations: No Limitations General appearance: alert, in no apparent distress - Head Head exam: Present: atraumatic, normocephalic, normal inspection - Eye Eye exam: Present: normal appearance, PERRL, EOMI Pupils: Present: normal accommodation - ENT ENT exam: Present: normal exam, normal orophraynx, mucous membranes moist, TM's normal bilaterally, normal external ear exam - Neck Neck exam: Present: normal inspection, full ROM. Absent: tenderness - Respiratory Respiratory exam: Present: normal lung sounds bilaterally. Absent: respiratory distress, wheezes, rales, chest wall tenderness, decreased breath sounds, prolonged expiratory - Cardiovascular Cardiovascular Exam: Present: normal rhythm, tachycardia, normal heart sounds. Absent: systolic murmur, diastolic murmur, rubs, gallop - GI/Abdominal GI/Abdominal exam: Present: soft, normal bowel sounds. Absent: distended, tenderness, guarding, rebound, hyperactive bowel sounds, hypoactive bowel sounds - Extremities Exam Extremities exam: Present: normal inspection, tenderness (Palpable severe left hand tenderness with moderate swelling, and limited range of motion due to pain), normal capillary refill, joint swelling (Left hand swelling and tenderness). Absent: full ROM (Limited range of motion of left hand due to pain), pedal edema - Back Exam Back exam: Present: normal inspection, full ROM. Absent: tenderness, CVA tenderness (R), CVA tenderness (L), muscle spasm, paraspinal tenderness, vertebral tenderness - Neurological Exam Neurological exam: Present: alert, oriented X3, CN II-XII intact, normal gait, reflexes normal - Psychiatric Psychiatric exam: Present: normal affect, normal mood, anxious - Skin Skin exam: Present: warm, dry, intact, normal color. Absent: rash ED Medical Decision Making - Radiology Data Radiology results: report reviewed, image reviewed [facility] [address] [place] [address] XRay Report Signed Patient: TERRY FERNANDEZ JR MR #: [id number] : 1985 Acct:[id number] Age/Sex: 35 / M ADM Date: 04/07/21 Loc: ED Attending Dr: Ordering Physician: HOSEA MAGALLON MD Date of Service: 04/07/21 Procedure(s): XR hand 3+V LT Accession Number(s): [id number] cc: HOSEA MAGALLON MD Fluoro Time In Minutes: XR hand 3+V LT INDICATION: injury. COMPARISON: None available. FINDINGS: There is a fracture of the distal shaft of the fifth metacarpal with dorsal apex angulation of the fracture. Signer Name: Rizwan العلي MD Signed: 04/07/2021 9:21 PM Workstation Name: [id number] Transcribed By: GABRIELA Dictated By: Rizwan العلي MD Electronically Authenticated By: Rizwan العلي MD Signed Date/Time: 04/07/212120 DD/ 20 TD/TT: [facility] [address] [place] [address] XRay Report Signed Patient: TERRY FERNANDEZ JR MR #: [id number] : 1985 Acct:[id number] Age/Sex: 35 / M ADM Date: 04/07/21 Loc: ED Attending Dr: Ordering Physician: HOSEA MAGALLON MD Date of Service: 04/07/21 Procedure(s): XR forearm LT Accession Number(s): [id number] cc: ED DOC, Fluoro Time In Minutes: XR forearm LT INDICATION / CLINICAL INFORMATION: injury. COMPARISON: None available. FINDINGS: BONES/JOINT(S): No acute fracture or subluxation. No significant degenerative changes. SOFT TISSUES: No significant abnormality. ADDITIONAL FINDINGS: None. Signer Name: Rizwan العلي MD Signed: 04/07/2021 9:22 PM Workstation Name: [id number] Transcribed By: GABRIELA Dictated By: Rizwan العلي MD Electronically Authenticated By: Rizwan العلي MD Signed Date/Time: 04/07/212121 DD/ 21 TD/TT: - Medical Decision Making This is a 35-year-old -Maltese male with a history of xfh-eynkayc-jkaiuphvv diabetes, hypertension, asthma and bipolar disorder presented to the ED with complaint of acute onset persistent severe left hand pain and swelling after he punched the wall in anger 24 hours ago. Patient states that he has not been able to perform any active range of motion with the left hand because of worsening pain. Patient states that he has previously injured the right hand as well after punching a wall in anger. Patient stated that he punched the wall because he did not want to punch any individual after he got annoyed. In the ED, patient is alert and oriented x3 and is not in any distress. Patient however appears to be in significant pain, unable to perform any active range of motion of the left hand because of pain. Patient was treated in the ED for pain and left hand x-ray showed a fracture of the distal shaft of the fifth metacarpal with dorsal apex angulation of the fracture. The left forearm x-ray showed no acute fractures or subluxations. The patient left hand was splinted with ulnar gutter splint and the patient was discharged home with a referral to the orthopedic surgeon Dr. Parmar for follow-up in the next 3 to 5 days. Patient was advised to contact Dr. Parmar's office first thing in the morning on Saturday, April 10, 2021 to schedule a follow-up appointment. Patient was otherwise advised return to the ED immediately if symptoms get worse. - Differential Diagnosis Fifth metacarpal fracture; hand contusion; wrist contusion; wrist sprain ED Disposition Clinical Impression: Closed displaced fracture of fifth metacarpal bone of left hand, Contusion of left wrist, initial encounter Disposition: HOME / SELF CARE / HOMELESS Is pt being admited?: No Does the pt Need Aspirin: No Condition: Stable Instructions: Boxer's Fracture, Contusion, [id number], Metacarpal Fracture, [id number] Additional Instructions: Left hand x-ray showed displaced distal left fifth metacarpal fracture. Therefore take medications with food, drink plenty of fluids and follow-up with orthopedic surgeon Dr. Parmar in 3 to 5 days for reevaluation. Contact Dr. Parmar's office first thing in the morning on Friday, May 07, 2021 to schedule a follow-up appointment. Return to the ED immediately if symptoms get worse. Prescriptions: Ibuprofen [Motrin 600 MG tab] 600 mg PO Q8H PRN #20 tablet PRN Reason: Pain, Moderate (4-6) Ibuprofen [Motrin] 800 mg PO Q8HR PRN #30 tablet PRN Reason: Pain , Severe (7-10) HYDROcodone/APAP 5-325 [[place] 5/325] 1 each PO Q6HR PRN #12 tablet PRN Reason: Pain HYDROcodone/APAP 5-325 [[place] 5/325] 1 each PO Q6HR PRN #12 tablet PRN Reason: Pain , Severe (7-10) Referrals: JAZMIN PARMAR MD [Staff Physician] - 3-5 Days Time of Disposition: 21:55 Print Language: BULGARIAN <PAOLA MITCHELL - Last Filed: 04/09/21 12:06> ED Review of Systems ROS: Stated complaint: DEHYDRATION Other details as noted in HPI ED Course Vital Signs 04/07/21 04/08/21 20:57 00:09 Temperature 98.9 F 97.4 F L Pulse Rate 121 H 85 Respiratory 18 18 Rate Blood Pressure 133/93 136/96 [Left] O2 Sat by Pulse 99 100 Oximetry ED Medical Decision Making - Medical Decision Making Patient reports that he lost his prescriptions while in his uber. I searched patient in [facility] and there are no filled narcotics. Dr. Corina Nj, ER attending recommended to order his prescriptions. I did not evaluate patient, I only re-wrote his prescriptions. Critical care attestation.: If time is entered above; I have spent that time in minutes in the direct care of this critically ill patient, excluding procedure time.
[2021-04-08 00:10] VITALS: BP 136/96
== END 2021-04-07 23:40 | disposition home or self-care (01) ==
LOC: ED 18:42
DX: S62.397A Other fracture of fifth metacarpal bone, left hand, initial encounter for closed fracture (principal); I10 Essential (primary) hypertension; E11.9 Type 2 diabetes mellitus without complications; F31.9 Bipolar disorder, unspecified; J45.909 Unspecified asthma, uncomplicated; F17.200 Nicotine dependence, unspecified, uncomplicated; W22.01XA Walked into wall, initial encounter; Y93.89 Activity, other specified; Y92.89 Other specified places as the place of occurrence of the external cause; Y99.8 Other external cause status
CPT/HCPCS: 99283; J3490; Q0162